=== PATIENT | female | born 1950 | race African-American/Black ===

== ENCOUNTER 2016-06-22 14:41 | Emergency (ER) | payer OTHER ==
[~2016-06-22] VITALS: Ht 160 cm; Wt 81.8 kg
[~2016-06-22 14:41] MED LIST: ADDERALL10 MG PO; ADVAIR 250-501 EACH IH; ADVAIR 250/501 DISK IH; ALPRAZOLAM1 MG PO; ASPIRIN81 M2 PO; ATARAX,VISTARIL50 M1 PO; CALCIUM + D3 E1 EACH PO; CLEOCIN300 MG PO; COMPLETE MULTI1 EAC1 PO; CYCLOBENZAPRINE10 M1 PO; CYCLOBENZAPRINE10 MG PO; CYMBALTA60 MG PO; Cymbalta PO; DURAGESIC75 MCG TD; ENBREL50 MG/1 ML SC; ENBREL50 MG/1 ML SQ; FENTANYL1 EAC1 TD; FISH OIL 1,0001 EAC7 PO; FLOVENT 11120 INHALA IH; FLOVENT DISKUS1 DIS2 IH; FORTAMET500 MG PO; FUROSEMIDE40 MG PO; GABAPENTIN600 MG PO; GARLIC1 EACH PO; HUMIRA CRO40 MG/0.8 SC; HYDROXYZINE HCL25 MG PO; JANUMET XR 1001 EACH PO; KEFLEX500 MG PO; KLOR-CON M2020 MEQ PO; KOMBIGLYZE XR1 EAC1 PO; KOMBIGLYZE XR1 EACH PO; LASIX40 MG PO; LINZESS290 MCG PO; LOTEMAX 0.200 DROP/1 BOTH EYES; Levaquin PO; MILK THISTLE 11 EACH PO; Miralax, Glycolax PO; NABUMETONE750 MG PO; NAPROSYN500 MG PO; NEXIUM40 MG PO; OXYCODONE HCL15 MG PO; PERCOCET 5/31 TABLET PO; SEROQUEL400 MG PO; SPIRIVA1 INHALATI IH; THEO-DUR,THEOC200 MG PO; TRIAMTERENE-HC1 EAC1 PO; TRIAMTERENE-HC1 EACH PO; ULTRAM50 MG PO; VICODIN,LORT1 TABLET PO; VITAMIN B-6100 MG PO; VITAMIN E400 UNIT PO; VOLTAREN50 MG PO; Xanax PO; ZAFIRLUKAST20 M1 PO; ZOLPIDEM TARTRA10 MG PO; predniSONE PO
[2016-06-22 19:34] VITALS: BP 134/95
== END 2016-06-22 19:35 | disposition home or self-care (01) ==
LOC: EME 14:41
DX: M25.572 Pain in left ankle and joints of left foot (principal); W05.2XXA Fall from non-moving motorized mobility scooter, initial encounter; Z98.890 Other specified postprocedural states; J43.9 Emphysema, unspecified; J44.9 Chronic obstructive pulmonary disease, unspecified; J45.909 Unspecified asthma, uncomplicated; I10 Essential (primary) hypertension; F17.200 Nicotine dependence, unspecified, uncomplicated; Z79.82 Long term (current) use of aspirin; Z91.040 Latex allergy status; Z88.4 Allergy status to anesthetic agent; Z88.0 Allergy status to penicillin; Z88.8 Allergy status to other drugs, medicaments and biological substances
CPT/HCPCS: 73610; 99281; 99284

== ENCOUNTER → 2017-02-25 | Outpatient (CLI) | payer OTHER | END | disposition home or self-care (01) | LOC: PICC 13:51 | DX: M86.172 Other acute osteomyelitis, left ankle and foot (principal) | CPT/HCPCS: 76937 ==

== ENCOUNTER 2017-03-22 01:20 | Emergency (ER) | payer OTHER ==
[~2017-03-22] VITALS: Ht 160 cm; Wt 80.6 kg
[~2017-03-22 01:20] MED LIST changes: +MELOXICAM15 MG PO
[2017-03-22] MEDS ORDERED: PREDNISONE20 MG PO (02:16)
[2017-03-22 02:22] VITALS: BP 144/84
== END 2017-03-22 02:22 | disposition home or self-care (01) ==
LOC: EME 01:20
DX: L27.1 Localized skin eruption due to drugs and medicaments taken internally (principal); T36.8X5A Adverse effect of other systemic antibiotics, initial encounter; L03.116 Cellulitis of left lower limb; I10 Essential (primary) hypertension; E11.9 Type 2 diabetes mellitus without complications; J44.9 Chronic obstructive pulmonary disease, unspecified; K21.9 Gastro-esophageal reflux disease without esophagitis; F32.9 Major depressive disorder, single episode, unspecified; F90.9 Attention-deficit hyperactivity disorder, unspecified type; F41.9 Anxiety disorder, unspecified; F17.200 Nicotine dependence, unspecified, uncomplicated; Z79.84 Long term (current) use of oral hypoglycemic drugs; Z88.0 Allergy status to penicillin
CPT/HCPCS: 99281; 99284; J7512